=== PATIENT | female | born 1980 | race Caucasian/White ===

== ENCOUNTER 2017-10-26 06:24 | Emergency (ER) | payer MEDICAID ==
[~2017-10-26] VITALS: Ht 154.9 cm; Wt 97.5 kg
[2017-10-26 06:34] VITALS: BP 168/103; Ht 154.9 cm; Wt 97.5 kg
[2017-10-26] MEDS ORDERED: EFFEXOR37.5 MG PO (06:36)
[2017-10-26] MEDS ORDERED: KLONOPIN1 MG PO (06:36)
[2017-10-26 07:01] LABS: BASOPHILS 0.2 % (0-2); HEMATOCRIT 42.5 % (36.0-48.0); IMMATURE GRANULOCYTES 0.4 % (0-5); LYMPHOCYTES 29.1 % (15-50); MCH 29.7 pg (26.0-34.0); MCHC 32.9 g/dL (31.0-37.0); MCV 90.2 fL (80.0-100.0); MEAN PLATELET VOLUME 10.8 fL (7.4-10.4); MONOCYTES 6.3 % (2-11); PLATELET COUNT 314 10x3/uL (130-400); RBC 4.71 10x6/uL (4.00-5.40); WBC 9.3 10x3/uL (4.8-10.8)
[2017-10-26 07:04] LABS: HCG SERUM NEGATIVE (NEGATIVE)
[2017-10-26 07:06] LABS: ALBUMIN 3.9 g/dL (3.4-5.0); ALKALINE PHOSPHATASE 88 U/L (46-116); ALT (SGPT) 25 U/L (10-68); CALC OSMOLALITY 282 mosm/kg (275-300); CALCIUM 9.5 mg/dL (8.5-10.1); CARBON DIOXIDE 29.9 mmol/L (21.0-32.0); CHLORIDE - SERUM 105 mmol/L (98-107); CREATININE - SERUM 0.8 mg/dL (0.6-1.3); GLUCOSE 132 mg/dL (74-106); LIPASE 163 U/L (73-393); POTASSIUM - SERUM 3.8 mmol/L (3.5-5.1); PROTEIN - SERUM 7.7 g/dL (6.4-8.2); SODIUM 142 mmol/L (136-145); UREA NITROGEN 7 mg/dL (7-18); eGFR NON AFRICAN AMERICAN 86 mL/min (90-120)
[2017-10-26 07:35] LABS: APPEARANCE HAZY (CLEAR); BILIRUBIN NEGATIVE (NEGATIVE); COLOR YELLOW (YELLOW); GLUCOSE NEGATIVE (NEGATIVE); KETONE NEGATIVE (NEGATIVE); NITRITE NEGATIVE (NEGATIVE); PROTEIN NEGATIVE (NEGATIVE); SPECIFIC GRAVITY 1.015 (1.005-1.020); UROBILINOGEN NORMAL (NORMAL)
[2017-10-26] MEDS ORDERED: PROTONIX40 MG PO (09:25)
[2017-10-26] MEDS ORDERED: HYDROCODON-ACE1 EAC7 PO (09:28)
== END 2017-10-26 10:07 | disposition home or self-care (01) ==
LOC: D.ER 06:24
PROVIDERS: Emergency Medicine
DX: K29.70 Gastritis, unspecified, without bleeding (principal)